=== PATIENT | male | born 1965 | race Caucasian/White ===

== ENCOUNTER 2016-06-18 11:25 | Outpatient (CLI) ==
--- NOTE | 2016-06-18 11:51 | DI ---
EXAM: Chest two view, frontal and lateral views. HISTORY: Smoking history. COMPARISON: None available. FINDINGS: The heart size is normal. There is no pulmonary vascular congestion. The lungs are jay r. No pleural effusion or pneumothorax is seen. No acute osseous abnormality identified. IMPRESSION: No acute cardiopulmonary process.
[2016-06-18 11:55] LABS: BASOPHILS % (AUTO) 0.3 % (0.0-3.0); EOSINOPHILS # (AUTO) 0.1 K/ul (0.0-0.7); EOSINOPHILS % (AUTO) 0.6 % (0.0-7.0); HEMATOCRIT 50.3 % (42.0-52.0); HEMOGLOBIN 17.1 g/dl (14.0-18.0); IMMATURE GRANULOCYTE % (AUTO) 0.3 % (0.0-5.0); LYMPHOCYTES # (AUTO) 1.9 K/uL (0.60-3.4); LYMPHOCYTES % (AUTO) 16.2 (10.0-50.0); MEAN CORPUSCULAR HEMOGLOBIN 31.7 pg (27.0-31.0); MEAN CORPUSCULAR VOLUME 93.3 fl (80.0-94.0); MONOCYTES # (AUTO) 0.5 K/uL (0.4-2.0); MONOCYTES % (AUTO) 4.5 (0-10); NEUTROPHILS # (AUTO) 9.1 K/ul (2.0-6.9); NEUTROPHILS % (AUTO) 78.1; PLATELET COUNT 211 10^3/uL (140-440); RED BLOOD COUNT 5.39 10^6/ul (4.70-6.10)
--- NOTE | 2016-06-18 11:56 | DI ---
EXAM: Radiographs, right hip HISTORY: Right hip pain. COMPARISON: None available. TECHNIQUE: Two views. FINDINGS: Plate and screw fixation seen over the iliac bone, ischium. There is severe right hip hannah int space narrowing with extensive marginal osteophyte formation on both sides of the hip. No acute fracture or dislocation identified. Soft tissues are unremarkable. IMPRESSION: 1. Severe right hip osteoarthritis. 2. Previous pelvic surgery.
[2016-06-18 12:37] LABS: ALBUMIN 4.2 g/dL (3.4-5.0); ALBUMIN/GLOBULIN RATIO 1.31; ANION GAP 12.9; BILIRUBIN,TOTAL 0.71 mg/dL (0.00-1.20); BUN/CREATININE RATIO 12.98; CALCIUM 9.7 mg/dL (8.2-10.2); CHOL/HDL RATIO 5.2 (4.5-6.4); CREATININE 0.77 mg/dL (0.60-1.10); POTASSIUM 3.9 mmol/L (3.5-5.1); TOTAL PROTEIN 7.4 g/dL (6.4-8.2)
[2016-06-19 06:10] LABS: TESTOSTERONE 254 ng/dL (348-1197)
== END 2016-06-18 11:26 | disposition home or self-care (01) ==
LOC: CAR 11:25
PROVIDERS: ATTEND Internal Medicine
DX: M25.551 Pain in right hip (principal); M54.9 Dorsalgia, unspecified; R05 Cough; R06.02 Shortness of breath; R63.4 Abnormal weight loss; J44.9 Chronic obstructive pulmonary disease, unspecified; F17.210 Nicotine dependence, cigarettes, uncomplicated; Z12.5 Encounter for screening for malignant neoplasm of prostate
CPT/HCPCS: 36415; 80053; 80061; 83036; 84403; 84443; 85025; 93005; 93010

== ENCOUNTER 2016-06-21 12:12 | Outpatient (CLI) | payer OTHER ==
--- NOTE | 2016-06-21 13:02 | DI ---
EXAM: Lumbar spine three views HISTORY: Back pain FINDINGS: No comparison. No noticeable scoliosis. Sacroiliac joints reveal mild arthropathy. Mil d to moderate degenerative endplate changes diffusely most apparent at L3/L4. No spondylolisthesis or significant loss of vertebral body height. No obvious acute fracture. Partial visualization of stabilization hardware over the right shaista pelvis. IMPRESSION: Mild to moderate degenerative endplate disease. Early arthropathy of the sacroiliac joints.
== END 2016-06-21 12:13 | disposition home or self-care (01) ==
LOC: RAD 12:12
PROVIDERS: ATTEND Internal Medicine
DX: M54.5 Low back pain (principal); M25.551 Pain in right hip; F17.210 Nicotine dependence, cigarettes, uncomplicated